=== PATIENT | female | born 1985 ===

== ENCOUNTER 2024-01-13 16:11 | Outpatient (CLI) | payer OTHER, SELFPAY ==
[2024-01-13 16:11] LABS: HCT 36.8 % (36.0-46.0); HGB 12.7 g/dL (11.2-15.7); MCH 30.9 pg (27.0-33.0); MCHC 34.5 % (32.0-36.0); MCV 90 fL (80-95); MPV 8.3 fL (8.0-11.0); Platelet Count 244 10^3/uL (130-400); RBC 4.11 10^6/uL (3.93-5.22); RDW 12.2 % (11.7-14.6); RDW-SD 39.9 fL; WBC 10.58 10^3/uL (4.4-10.8)
== END 2024-01-13 16:12 | disposition home or self-care (01) ==
PROVIDERS: PCP Advanced Practice Midwife; Visit Provider Advanced Practice Midwife
DX: Z34.91 Encounter for supervision of normal pregnancy, unspecified, first trimester (principal); Z3A.13 13 weeks gestation of pregnancy
CPT/HCPCS: 36415; 85027; 86850; 86900; 86901

== ENCOUNTER 2024-04-02 03:08 | Outpatient (CLI) | payer OTHER, SELFPAY ==
[2024-04-02 16:58] LABS: HCT 38.6 % (36.0-46.0); HGB 12.8 g/dL (11.2-15.7); MCH 30.9 pg (27.0-33.0); MCHC 33.2 % (32.0-36.0); MCV 93 fL (80-95); MPV 8.4 fL (8.0-11.0); Platelet Count 311 10^3/uL (130-400); RBC 4.14 10^6/uL (3.93-5.22); RDW 12.3 % (11.7-14.6); RDW-SD 42.4 fL; WBC 10.93 10^3/uL (4.4-10.8)
[2024-04-02 18:13] LABS: Bilirubin Negative (Negative); Blood Trace-intact (Negative); Clarity Clear (Clear); Glucose Negative (Negative); Ketones Negative (Negative); Leukocyte Esterase Negative (Negative); Nitrite Negative (Negative); Specific Gravity 1.015 (1.005-1.025); Urobilinogen 0.2 mg/dL (Up to 0.2)
[2024-04-02 18:17] LABS: Ferritin 25 ng/mL (8-252)
[2024-04-02 18:38] LABS: Bacteria Negative HPF (Negative); C & S Indicated? C&S Done As Ordered; Casts Negative LPF (Negative); Crystals Negative HPF (Negative); Epithelial Cells Rare HPF (Negative); Mucus Negative (Negative); RBC 0-2 HPF (0-2); WBC 0-2 HPF (0-5)
[2024-04-03 08:01] LABS: Lab Add On Test DONE
[2024-04-03 08:35] LABS: TSH (W/Ref FT4) 1.01 uIU/mL (0.36-3.74)
== END 2024-04-02 03:09 | disposition home or self-care (01) ==
LOC: LBO 03:09
PROVIDERS: PCP Advanced Practice Midwife; Visit Provider Advanced Practice Midwife
DX: O26.899 Other specified pregnancy related conditions, unspecified trimester (principal); R35.0 Frequency of micturition; Z34.90 Encounter for supervision of normal pregnancy, unspecified, unspecified trimester; O09.519 Supervision of elderly primigravida, unspecified trimester
CPT/HCPCS: 36415; 82306; 85027; 81003; 81015; 82728; 83036; 84443; 87086

== ENCOUNTER 2024-07-19 21:04 | Inpatient (IN) | payer OTHER, SELFPAY ==
[2024-07-19] VITALS (7 sets, daily range): BP systolic 134–141; BP diastolic 65–79; PULSE 79–88; RESP 16; TEMP 36.6–36.7
[2024-07-19 19:21] LABS: HCT 34.9 % (36.0-46.0); HGB 11.4 g/dL (11.2-15.7); MCH 28.2 pg (27.0-33.0); MCHC 32.7 % (32.0-36.0); MCV 86 fL (80-95); Platelet Count 315 10^3/uL (130-400); RBC 4.04 10^6/uL (3.93-5.22); RDW 13.6 % (11.7-14.6); RDW-SD 42.5 fL; WBC 10.17 10^3/uL (4.4-10.8)
[2024-07-19 19:26] LABS: Bilirubin Negative (Negative); Blood Moderate (Negative); Clarity Clear (Clear); Glucose Negative (Negative); Ketones Negative (Negative); Leukocyte Esterase Small (Negative); Nitrite Negative (Negative); Urobilinogen 0.2 mg/dL (Up to 0.2); pH 6.5 (5-8)
[2024-07-19 19:42] LABS: COMMENT (LAB VIEW ONLY) 72.26 mg/dL; PROTEIN 33.8 mg/dL; Prot/Crea Ur Ratio 0.46
[2024-07-19 19:47] LABS: ALT 13 U/L (14-59); AST 15 U/L (15-37); Albumin 2.4 g/dL (3.4-5.0); Alkaline Phosphatase 153 U/L (46-116); Anion Gap 8.9 mmol/L (3-11); BUN 18 mg/dL (7-18); Bilirubin, Total 0.15 mg/dL (0.2-1.0); CO2 23.1 mmol/L (21.0-32.0); CREATININE 0.9 mg/dL (0.55-1.02); Chloride 108 mmol/L (98-107); Estimated GFR 82.88 (mL/min/1.73m2); Glucose 97 mg/dL (74-106); Potassium 4.7 mmol/L (3.5-5.1); Sodium 140 mmol/L (136-145); Total Protein 6.2 g/dL (6.4-8.2)
[2024-07-19 19:48] LABS: Bacteria Few HPF (Negative); C & S Indicated? No/Sq. Contamination; Casts Negative LPF (Negative); Crystals Negative HPF (Negative); Epithelial Cells Moderate HPF (Negative); Mucus Negative (Negative)
--- NOTE | 2024-07-19 21:08 | HPE_ITS ---
Date of service: 07/19/24 Time of Service: 21:08 Assessment and Plan Assessment and plan (1) Preeclampsia: Status: Acute Assessment and plan: P0 @40wks transferred from care with her home ward attendant for induction of labor due to PEC without severe features. We had a long discussion about her diagnosis and our recommendation with induction of labor. She is agreeable with this plan and requested labor management by our midwives. Christina notified and will plan to assume care in the am. We reviewed my recommendations for a hep lock in case she needs IV medication for BP management. We also discussed my recommendation for induction with misoprostol. She would like to wait until her returns and then plan to take the first dose. She has been feeling a little crampy since her cervical exam. She is aware of the need for monitoring per protocol. She has declined GBS screening and previously declined a glucola test. It sounds as though she may have a large amount of fluid though this has not been confirmed on ultrasound here. (2) History of abnormal cervical Pap smear: Assessment and plan: Will need to f/u with her about her pap smear history and willingness for further screening. (3) PTSD (post-traumatic stress disorder): Status: Acute Assessment and plan: She has had traumatic experiences at hospitals in the past and requests that everyone explain things thoroughly to her before doing anything to her. OB-HPI Labor/Delivery History of Present Illness Reason for Visit: Preeclampsia Chief Complaint: Signs/Symptoms Gestational HTN , Associated Signs and Symptoms of GestationalHTN: Elevated BPs at home ward attendant visit. JARET Calculator Estimated Delivery Date Method Current WG Current Estimate 07/19/24 LMP (Certain) 40w 0d History of Present Expected Delivery Route/Plan , hopes for homebirth FOB/ - Andrew Sanders (has 15 yo daughter) Specific Issues/Plan 1. Sees [place] JANICE (licensed aircraft maintenance engineer), was planning home delivery 2. AMA, age 38 @ [facility]; declines all genetic screening, accepts [facility] consult & level 2 scan 2a. Growth scan recommended by M @ 34 wks ___ 2b. MFM: surveillance @ 36 wks (NST & DEBI weekly) and IOL between 39- 39+6 wks ___ 3. FOB has cardiac hx including VSD and arrhythmia ([facility] consult accepted) 3a. Level 2 u/s is nml, pt declined all genetic screens & amnio. MFM consult recommends echo ___ 4. Low dose ASA is recommended d/t AMA & nulliparity, pt declines 5. 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 Pt with traumatic experience at [facility] with prior abnl pap management 6. 28 wk labs drawn at pt request, glucola is declined, HgbA1C is 5.0 7. Pt declined GBS testing Narrative: Pt was planning a home but at a routine visit today she was found to have mildly elevated BPs and her ward attendant recommended that she comes here for labs to r/o PEC. She says she has had some back pain but no real contractions, no bleeding. She is feeling good movement. She says she has had some swelling for several weeks but it is getting worse. She had a headache last night but it resolved in the am. She has had some diarrhea the past day or so. No LOF or unusual discharge. Review of Systems Genitourinary Genitourinary: Reports system reviewed and no additional complaints, except as documented PFSH All Active Problems (Updated 07/19/24 @ 21:49 by Sary Gomez MD) Preeclampsia (Acute) Family history of cardiac disorder in father (Acute) Pt's partner/FOB has arrhythmia and VSD Elderly primigravida (Acute) Migraines (Chronic) Anxiety (Chronic) PTSD (post-traumatic stress disorder) (Acute) (Acute) Medical History (Updated 07/19/24 @ 21:49 by Sary Gomez MD) History of abnormal cervical Pap smear Pelvic floor dysfunction Increased urinary frequency during Social History (Updated 01/13/24 @ 15:19 by Wendy Sparks) Smoking/Tobacco Use Status: Never Second Hand Exposure: No Smoking risk assessment performed?: Yes Alcohol Intake: never Drug use: Never Substance use type: does not use Household members: spouse and family current occupation: [place] Sexually active: Yes Current gender identity: female What is your relationship status?: Panel score (0-1 are the most socially isolated patients): 1 What type of physical activity do you participate in: regular exercise Duration: 30-45 minutes/day Seatbelt use: always Helmet use: Yes Do you feel safe at home: Yes History History 1 Para 0 Hx # Term Pregnancies 0 Multiple births 0 Hx # Pregnancies 0 Ectopic pregnancies 0 AB induced 0 Hx Number of Living Children 0 AB spontaneous 0 Meds Allergies and Home Medications Allergies Allergy/AdvReac Type Severity Reaction Status Date / Time hydroxyzine Allergy Mild Dizziness/L Verified 01/13/24 15:10 ighthead Home Medications ?Medication ?Instructions ?Recorded ?Confirmed ?Type Unknown [No Known Home Meds] 01/13/24 07/19/24 History Exam Physical Exam Vital signs: Temp Pulse BP 97.9 F 88 139/76 07/19/24 19:18 07/19/24 19:48 07/19/24 19:48 Vital Signs Reviewed: Yes Detailed Labor and Delivery Exam Dilation: 1 Effacement (%): 70 station: -2 Cervix position: mid Consistency: soft Leon Score: Cervical Points Exam 0 1 2 3 Dilation Closed 1-2cm 3-4 cm 5-6cm Effacement 0-30% 40-50% 60-70% 80% Consistency Firm Medium Soft Station -3 -2 -1,0 +1,+2 Position Posterior Mid Anterior Amniotic Membrane Status: Intact Fetus A Heart Rate Baseline: 1 Detailed HEENT Exam Head: Present normocephalic and atraumatic Detailed Abdominal Exam Comments: gravid, nontender EFW ~8.5lbs Detailed Neurological Exam Neurological: Present alert, oriented X3 and CN II-XII intact DetailedPsychiatric Exam Psychiatric: Present normal affect, normal thought process and cooperative Additional findings Additional findings: Per pt, her ward attendant did a sono 2 days ago that showed vertex presentation with lots of pockets of fluid. Results Results Group Beta Strep: Not Done Blood Type: O+ Rubella Status: Immune Varicella Immunity: Not Tested Abnormal Lab Findings: Abnormal Labs 07/19/24 07/19/24 19:04 19:13 Hct 34.9 L Chloride 108 H Total Bilirubin 0.15 L ALT 13 L Alkaline Phosphatase 153 H Total Protein 6.2 L Albumin 2.4 L Urine Protein 30 H Urine Blood Moderate H Ur Leukocyte Esterase Small H Urine RBC 5-10 H Urine WBC 10-20 H Additional Findings Results: Urine protein creatinine ratio: 0.46 Risk Assessment Risks Reviewed Risks Reviewed Upon Admission: Yes
--- NOTE | 2024-07-19 21:52 | W.OBNST ---
Date of service: 07/19/24 Time of Service: 19:30 NST Evaluation Reason for NST Reasons for Nonstress Test: OTHER, SEE COMMENT Reason for NST Other: Rule out preeclampsia Gestational Age Gestational Age in Weeks and Days: 40 Weeks and 0Days Test and Monitor Explained Test/Monitor Explained: Test Explained, Monitor Explained and Patient Verbalized Understanding Vital Signs Blood Pressure: 136/79 Pulse: 81 Temperature: 97.9 F Urine Results Urine Protein: Positive Urine Ketones: Negative Urine Glucose: Negative Urine Blood: Positive NST Information Date on Monitor: 07/19/24 Time on Monitor: 19:16 Date off Monitor: 07/19/24 Time off Monitor: 19:38 Total Time on Monitor: 22 NST Interventions: PO Hydration Contraction Frequency: Praveen occasionally. Patient states she is not feeling them. NST Evaluation Patient States Movement: Present FHR Baseline: 135 Variability: Moderate 6-25 bpm Accelerations: 15x15 Decelerations: None NST Results: Reactive Note Ultrasound Done: N/A. NST Note NST Reviewed and Verified by: Sary Gomez
[2024-07-19 22:58] LABS: ROM Plus Positive
[2024-07-20] VITALS (117 sets, daily range): BP systolic 114–152; BP diastolic 56–88; PULSE 73–155; RESP 16–18; TEMP 36.3–37.7; O2SAT 89–100; BMI 38.2
--- NOTE | 2024-07-20 01:12 | W.PM.OBNL1 ---
Date of service: 07/20/24 Time of Service: 01:12 Pelvic Exam Dilation: 5 Effacement (%): 90 station: -1 Contractions Contraction Frequency(min): q2-3min Fetus A Monitor: Doppler (130s) Assessment and Plan Assessment and plan (1) Preeclampsia: Status: Acute Assessment and plan: P0 @40.1wks with PEC who progressed into spontaneous labor with SROM. She is coping with the support of her and dining services director. She was offered alternative pain management such as nitrous oxide but she plans to try to sit in the shower first. Objective Abnormal lab results 07/19/24 07/19/24 Range/Units 19:04 19:13 Hct 34.9 L (36.0-46.0) % Chloride 108 H (98-107) mmol/L Total Bilirubin 0.15 L (0.2-1.0) mg/dL ALT 13 L (14-59) U/L Alkaline Phosphatase 153 H (46-116) U/L Total Protein 6.2 L (6.4-8.2) g/dL Albumin 2.4 L (3.4-5.0) g/dL Urine Protein 30 H (Neg-Trace) mg/dL Urine Blood Moderate H (Negative) Ur Leukocyte Esterase Small H (Negative) Urine RBC 5-10 H (0-2) HPF Urine WBC 10-20 H (0-5) HPF Temp Pulse Resp BP 98.1 F 81 18 151/87 H 07/19/24 22:04 07/20/24 00:39 07/20/24 00:39 07/20/24 00:39 Laboratory Results WBC 10.17 10^3/uL (4.4-10.8) 07/19/24 19:13 RBC 4.04 10^6/uL (3.93-5.22) 07/19/24 19:13 Hgb 11.4 g/dL (11.2-15.7) 07/19/24 19:13 Hct 34.9 % (36.0-46.0) L 07/19/24 19:13 MCV 86 fL (80-95) 07/19/24 19:13 MCH 28.2 pg (27.0-33.0) 07/19/24 19:13 MCHC 32.7 % (32.0-36.0) 07/19/24 19:13 RDW 13.6 % (11.7-14.6) 07/19/24 19:13 Plt Count 315 10^3/uL (130-400) 07/19/24 19:13 MPV 9.0 fL (8.0-11.0) 07/19/24 19:13 Sodium 140 mmol/L (136-145) 07/19/24 19:13 Potassium 4.7 mmol/L (3.5-5.1) 07/19/24 19:13 Chloride 108 mmol/L (98-107) H 07/19/24 19:13 Carbon Dioxide 23.1 mmol/L (21.0-32.0) 07/19/24 19:13 Anion Gap 8.9 mmol/L (3-11) 07/19/24 19:13 BUN 18 mg/dL (7-18) 07/19/24 19:13 Creatinine 0.9 mg/dL (0.55-1.02) 07/19/24 19:13 Est GFR (CKD-EPI 2020) 82.88 (mL/min/1.73m2) 07/19/24 19:13 Glucose 97 mg/dL (74-106) 07/19/24 19:13 Calcium 9.0 mg/dL (8.5-10.1) 07/19/24 19:13 Total Bilirubin 0.15 mg/dL (0.2-1.0) L 07/19/24 19:13 AST 15 U/L (15-37) 07/19/24 19:13 ALT 13 U/L (14-59) L 07/19/24 19:13 Alkaline Phosphatase 153 U/L (46-116) H 07/19/24 19:13 Total Protein 6.2 g/dL (6.4-8.2) L 07/19/24 19:13 Albumin 2.4 g/dL (3.4-5.0) L 07/19/24 19:13 Urine Color Yellow (Yellow) 07/19/24 19:04 Urine Clarity Clear (Clear) 07/19/24 19:04 Urine pH 6.5 (5-8) 07/19/24 19:04 Ur Specific [place] 1.020 (1.005-1.025) 07/19/24 19:04 Urine Protein 30 mg/dL (Neg-Trace) H 07/19/24 19:04 Urine Ketones Negative mg/dL (Negative) 07/19/24 19:04 Urine Blood Moderate (Negative) H 07/19/24 19:04 Urine Nitrite Negative (Negative) 07/19/24 19:04 Urine Bilirubin Negative (Negative) 07/19/24 19:04 Urine Urobilinogen 0.2 mg/dL (Up to 0.2) 07/19/24 19:04 Ur Leukocyte Esterase Small (Negative) H 07/19/24 19:04 Urine RBC 5-10 HPF (0-2) H 07/19/24 19:04 Urine WBC 10-20 HPF (0-5) H 07/19/24 19:04 Ur Epithelial Cells Moderate HPF (Negative) 07/19/24 19:04 Urine Crystals Negative HPF (Negative) 07/19/24 19:04 Urine Bacteria Few HPF (Negative) 07/19/24 19:04 Urine Casts Negative LPF (Negative) 07/19/24 19:04 Urine Mucus Negative (Negative) 07/19/24 19:04 Ur Culture Indicated? No/Sq. Contamination 07/19/24 19:04 Ur Random Creatinine 72.26 mg/dL 07/19/24 19:04 U Random Total Protein 33.8 mg/dL 07/19/24 19:04 U [place] Prot/Creat Ratio 0.46 07/19/24 19:04 Urine Glucose Negative mg/dL (Negative) 07/19/24 19:04 Membranes Rupture Positive 07/19/24 22:42 ABO/Rh O Positive 07/19/24 19:13 Antibody Screen NEGATIVE 07/19/24 19:13 Vital Signs Reviewed: Yes Subjective Interval history since last seen: Pt progressed into active labor without getting misoprostol. She experienced SROM around 10:40pm and continued leaking a small amount of clear fluid. She is jessica regularly every few minutes, spent some time in the tub and has been moving around but is getting tired and discouraged and desired a cervical check. Results Hemoglobin/Hematocrit: Hgb 11.4 g/dL (11.2-15.7) 07/19/24 19:13 Hct 34.9 % (36.0-46.0) L 07/19/24 19:13 Abnormal Lab Findings: Abnormal Labs 07/19/24 07/19/24 19:04 19:13 Hct 34.9 L Chloride 108 H Total Bilirubin 0.15 L ALT 13 L Alkaline Phosphatase 153 H Total Protein 6.2 L Albumin 2.4 L Urine Protein 30 H Urine Blood Moderate H Ur Leukocyte Esterase Small H Urine RBC 5-10 H Urine WBC 10-20 H
--- NOTE | 2024-07-20 02:42 | W.PM.OBNL1 ---
Date of service: 07/20/24 Time of Service: 02:42 Pelvic Exam Dilation: 8 Effacement (%): 90 station: -1 Fetus A Monitor: Doppler (120) Assessment and Plan Assessment and plan (1) Preeclampsia: Status: Acute Assessment and plan: P0 @40.1wks planning induction for PEC but went into spontaneous labor and has progressed to 8cm. Desires an epidural. status reassuring. Objective Abnormal lab results 07/19/24 07/19/24 Range/Units 19:04 19:13 Hct 34.9 L (36.0-46.0) % Chloride 108 H (98-107) mmol/L Total Bilirubin 0.15 L (0.2-1.0) mg/dL ALT 13 L (14-59) U/L Alkaline Phosphatase 153 H (46-116) U/L Total Protein 6.2 L (6.4-8.2) g/dL Albumin 2.4 L (3.4-5.0) g/dL Urine Protein 30 H (Neg-Trace) mg/dL Urine Blood Moderate H (Negative) Ur Leukocyte Esterase Small H (Negative) Urine RBC 5-10 H (0-2) HPF Urine WBC 10-20 H (0-5) HPF Temp Pulse Resp BP 97.4 F L 73 18 137/71 07/20/24 01:15 07/20/24 01:15 07/20/24 00:39 07/20/24 01:15 Laboratory Results WBC 10.17 10^3/uL (4.4-10.8) 07/19/24 19:13 RBC 4.04 10^6/uL (3.93-5.22) 07/19/24 19:13 Hgb 11.4 g/dL (11.2-15.7) 07/19/24 19:13 Hct 34.9 % (36.0-46.0) L 07/19/24 19:13 MCV 86 fL (80-95) 07/19/24 19:13 MCH 28.2 pg (27.0-33.0) 07/19/24 19:13 MCHC 32.7 % (32.0-36.0) 07/19/24 19:13 RDW 13.6 % (11.7-14.6) 07/19/24 19:13 Plt Count 315 10^3/uL (130-400) 07/19/24 19:13 MPV 9.0 fL (8.0-11.0) 07/19/24 19:13 Sodium 140 mmol/L (136-145) 07/19/24 19:13 Potassium 4.7 mmol/L (3.5-5.1) 07/19/24 19:13 Chloride 108 mmol/L (98-107) H 07/19/24 19:13 Carbon Dioxide 23.1 mmol/L (21.0-32.0) 07/19/24 19:13 Anion Gap 8.9 mmol/L (3-11) 07/19/24 19:13 BUN 18 mg/dL (7-18) 07/19/24 19:13 Creatinine 0.9 mg/dL (0.55-1.02) 07/19/24 19:13 Est GFR (CKD-EPI 2020) 82.88 (mL/min/1.73m2) 07/19/24 19:13 Glucose 97 mg/dL (74-106) 07/19/24 19:13 Calcium 9.0 mg/dL (8.5-10.1) 07/19/24 19:13 Total Bilirubin 0.15 mg/dL (0.2-1.0) L 07/19/24 19:13 AST 15 U/L (15-37) 07/19/24 19:13 ALT 13 U/L (14-59) L 07/19/24 19:13 Alkaline Phosphatase 153 U/L (46-116) H 07/19/24 19:13 Total Protein 6.2 g/dL (6.4-8.2) L 07/19/24 19:13 Albumin 2.4 g/dL (3.4-5.0) L 07/19/24 19:13 Urine Color Yellow (Yellow) 07/19/24 19:04 Urine Clarity Clear (Clear) 07/19/24 19:04 Urine pH 6.5 (5-8) 07/19/24 19:04 Ur Specific [place] 1.020 (1.005-1.025) 07/19/24 19:04 Urine Protein 30 mg/dL (Neg-Trace) H 07/19/24 19:04 Urine Ketones Negative mg/dL (Negative) 07/19/24 19:04 Urine Blood Moderate (Negative) H 07/19/24 19:04 Urine Nitrite Negative (Negative) 07/19/24 19:04 Urine Bilirubin Negative (Negative) 07/19/24 19:04 Urine Urobilinogen 0.2 mg/dL (Up to 0.2) 07/19/24 19:04 Ur Leukocyte Esterase Small (Negative) H 07/19/24 19:04 Urine RBC 5-10 HPF (0-2) H 07/19/24 19:04 Urine WBC 10-20 HPF (0-5) H 07/19/24 19:04 Ur Epithelial Cells Moderate HPF (Negative) 07/19/24 19:04 Urine Crystals Negative HPF (Negative) 07/19/24 19:04 Urine Bacteria Few HPF (Negative) 07/19/24 19:04 Urine Casts Negative LPF (Negative) 07/19/24 19:04 Urine Mucus Negative (Negative) 07/19/24 19:04 Ur Culture Indicated? No/Sq. Contamination 07/19/24 19:04 Ur Random Creatinine 72.26 mg/dL 07/19/24 19:04 U Random Total Protein 33.8 mg/dL 07/19/24 19:04 U [place] Prot/Creat Ratio 0.46 07/19/24 19:04 Urine Glucose Negative mg/dL (Negative) 07/19/24 19:04 Membranes Rupture Positive 07/19/24 22:42 ABO/Rh O Positive 07/19/24 19:13 Antibody Screen NEGATIVE 07/19/24 19:13 Subjective Interval history since last seen: Pt has tried nitrous oxide and would like to have an epidural now. Results Hemoglobin/Hematocrit: Hgb 11.4 g/dL (11.2-15.7) 07/19/24 19:13 Hct 34.9 % (36.0-46.0) L 07/19/24 19:13 Abnormal Lab Findings: Abnormal Labs 07/19/24 07/19/24 19:04 19:13 Hct 34.9 L Chloride 108 H Total Bilirubin 0.15 L ALT 13 L Alkaline Phosphatase 153 H Total Protein 6.2 L Albumin 2.4 L Urine Protein 30 H Urine Blood Moderate H Ur Leukocyte Esterase Small H Urine RBC 5-10 H Urine WBC 10-20 H
--- NOTE | 2024-07-20 02:49 | ANES.PREOP_ITS ---
General Info Date of Service Date Performed: 07/20/24 Height: 5 ft 5 in Weight: 104.326 kg Body Mass Index (BMI): 38.2 Meds Allergies and Home Medications Allergies Allergy/AdvReac Type Severity Reaction Status Date / Time hydroxyzine Allergy Mild Dizziness/L Verified 01/13/24 15:10 ighthead Home Medication ?Medication ?Instructions ?Recorded Unknown [No Known Home Meds] 01/13/24 Current Visit Medications: Current Medications Generic Name Dose Route Start Last Admin Trade Name Freq PRN Reason Stop Dose Admin Fentanyl/Ropivacaine 200 ml 07/20/24 02:30 Fentanyl/Ropivacaine 2 Mcg/Ml And 0.1% 200 Ml [place]ette EP DIRECTED [facility] IV Miscellaneous Supplies 1 each 07/19/24 21:15 Iv Access IV DIRECTED LUIS Misoprostol 25 mcg 07/19/24 22:00 Misoprostol 25 Mcg Tab PO Q4H LUIS Sodium Chloride 0 ml 07/19/24 21:03 Normal Saline Flush 10 Ml Syr IVP PRN PRN Sodium Chloride 0 ml 07/20/24 08:30 Normal Saline Flush 10 Ml Syr IVP BID LUIS Sodium Chloride 0 ml 07/19/24 21:03 Normal Saline 10 Ml Vial IJ DIRECTED PRN Terbutaline Sulfate 0.25 mg 07/19/24 21:03 Terbutaline 1 Mg/Ml Vial SC PRN PRN PFSH Active Problems Active Problems: Problem Status Onset Code Preeclampsia Acute O14.90 Family history of cardiac disorder in father Acute Z82.49 Elderly primigravida Acute O09.519 Migraines Chronic G43.909 PTSD (post-traumatic stress disorder) Acute F43.10 Anxiety Chronic F41.9 Acute Z34.90 Medical History Medical History (Updated 07/19/24 @ 21:49 by Sary Gomez MD) History of abnormal cervical Pap smear Pelvic floor dysfunction Increased urinary frequency during Tobacco Smoking/Tobacco Use Status: Never Second hand exposure: No Alcohol Alcohol Intake: never Substance Use Substance use: Never Substance use type: does not use Prental History History 2 1 Para 0 Hx # Term Pregnancies 0 Multiple births 0 Hx # Pregnancies 0 Ectopic pregnancies 0 AB induced 0 Hx Number of Living Children 0 AB spontaneous 0 Vital Signs and Lab Results Vital Signs Most Recent Vital Signs in EMR: Most Recent Vital Signs Temp Pulse Resp BP 36.3 C L 73 18 137/71 07/20/24 01:15 07/20/24 01:15 07/20/24 00:39 07/20/24 01:15 Lab Results 07/19/24 19:13 07/19/24 19:13 Blood Type / Crossmatch: 2 Antibody Screen NEGATIVE 07/19/24 Complete Blood Count: 2 White Blood Count 10.17 10^3/uL (4.4-10.8) 07/19/24 19:13 Red Blood Count 4.04 10^6/uL (3.93-5.22) 07/19/24 19:13 Hemoglobin 11.4 g/dL (11.2-15.7) 07/19/24 19:13 Hematocrit 34.9 % (36.0-46.0) L 07/19/24 19:13 Platelet Count 315 10^3/uL (130-400) 07/19/24 19:13 Complete Metabolic Panel: 2 Sodium 140 mmol/L (136-145) 07/19/24 19:13 Potassium 4.7 mmol/L (3.5-5.1) 07/19/24 19:13 Chloride 108 mmol/L (98-107) H 07/19/24 19:13 Carbon Dioxide 23.1 mmol/L (21.0-32.0) 07/19/24 19:13 BUN 18 mg/dL (7-18) 07/19/24 19:13 Creatinine 0.9 mg/dL (0.55-1.02) 07/19/24 19:13 Est GFR (CKD-EPI 2020) 82.88 (mL/min/1.73m2) 07/19/24 19:13 Calcium 9.0 mg/dL (8.5-10.1) 07/19/24 19:13 Albumin 2.4 g/dL (3.4-5.0) L 07/19/24 19:13 Glucose 97 mg/dL (74-106) 07/19/24 19:13 Liver Function Panel: 2 Alanine Aminotransferase (ALT/SGPT) 13 U/L (14-59) L 07/19/24 1 9:13 Aspartate Amino Transf (AST/SGOT) 15 U/L (15-37) 07/19/24 19:13 Coagulation Panel: 2 No Data to Display Cardiac Panel: 2 No Data to Display Arterial Blood Gas: 2 No Data to Display Venous Blood Gas: 2 No Data to Display Pancreas Panel: 2 No Data to Display Thyroid Panel: 2 No Data to Display Infectious Disease: 2 No Data to Display Blood Cultures: 2 No Data to Display Toxicology Panel: 2 No Data to Display Panel: 2 No Data to Display Anesthesia Assessment and Plan Anesthesia History Personal History: No History of Anesthesia Complications Family History: No Family History of Anesthesia Complications Exercise Tolerance Exercise Tolerance: Metabolic Equivalents>4 Cardiac & Pulmonary Exam Cardiac Exam: Normal S1/S2 Heart Sounds Pulmonary Exam: Clear Bilateral Breath Sounds Implantable Cardiac Device Does patient have a Pacemaker or an ICD?: No Airway Exam Known Difficult Airway: No Mallampati Class: 3 Mouth Opening: Normal (> 3cm) Thyromental Distance: Less than 3 cm Neck Range of Motion: Full ROM Neck Circumference: Normal Teeth Condition: Normal Dentition ASA Classification ASA Score: ASA 2 Emergency Case?: No NPO Status NPO Status: Full Stomach Status Status: Confirmed Anesthesia Plan Resuscitation Status: Full Code Anesthesia Technique: Epidural Anesthesia Airway Planned: Natural Airway Pain Management: Epidural Monitors Used: Standard Monitors Preoperative Comments:: 38 yo female requesting labor epidural. 40 wks, was going to do home delivery, preeclamptic, came in for induction with then spontaneous onset of labor. Currently 8 cm, 90 %. Sig PMHx: PTSD, anxiety, migraines, never smoker. Plt: 315 Denies Asthma.
[2024-07-20] MEDS: FentaNYL/ROPIvacaine 2 mcg/ml and 0.1% 200 ML CADD Cassette EP (03:20)
--- NOTE | 2024-07-20 03:37 | W.ANESNEU ---
Epidural/Spinal Catheter Date Performed: 07/20/24 Procedure Start: : Procedure Stop: : Requesting Provider: Sary Gomez Procedure Location: Obstetrics Reason Performed: Labor Epidural Standard Monitors Applied: Blood Pressure and SpO2 Patient Position: Sitting Sedation Given (Indicate Dose Given): No Sedation given Patient Mental Status: Awake Sterility: Hand Hygiene, Surgical Cap, Surgical Mask, Sterile Gloves, Sterile Drape/Sheet and Chlorhexidine Procedure Location: L3-L4 Interspace Epidural Needle: Tuohy 17 Guage Needle Length: 3.5 Inch Needle Approach: Midline Epidural Procedure: 1% Lidocaine to skin and subcutaneous tissue with 25G needle and Epidural Catheter Placed (wire reinforced) Catheter Placed?: Catheter Placed Test Dose (Indicate Dose Given): 3ml 1.5% Lidocaine with 1:200K Epinephrine Given Loss of Resistance Depth (cm): 7 Catheter depth at skin (cm): 13 Dressing: Sorbaview Dressing Placed Epidural Provider Bolus (Indicate Dose Given): Total Ropivacaine 0.1% with Fentanyl 2mcg/ml Given from pump. (ml) Dose:: 7 mL Additives (Indicate Dose Given ): None Infusion Medication: Medication Infusion Began Medication Infusion: Ropivacaine 0.1% with Fentanyl 2mcg/ml Maintenance Infusion Rate (ml/hour): 10 PCEA Bolus Dose (ml): 5 Block Level: N/A Paresthesia: None Ultrasound: Used to sven site Number of Attempts (See previous attempts in note section): 1 Procedure Tolerated: No Complications and Patient tolerated well Procedure Outcome: Successful Performed By: David Reyes
--- NOTE | 2024-07-20 06:10 | W.PM.OBNL1 ---
Date of service: 07/20/24 Time of Service: 06:11 Pelvic Exam Comments: There was a reducible anterior lip as pt started pushing. Fetus A Heart Rate Baseline: 140 Variability: Moderate (6-25 BPM) Accelerations: 15 X 15 Decelerations: None Assessment and Plan Assessment and plan (1) Preeclampsia: Status: Acute (2) : Status: Acute Assessment and plan: P0 @40.1wks with PEC, spontaneous labor, received epidural, now pushing. Cat 1 FHT. Bps mildly elevated to normal. Objective Abnormal lab results 07/19/24 07/19/24 Range/Units 19:04 19:13 Hct 34.9 L (36.0-46.0) % Chloride 108 H (98-107) mmol/L Total Bilirubin 0.15 L (0.2-1.0) mg/dL ALT 13 L (14-59) U/L Alkaline Phosphatase 153 H (46-116) U/L Total Protein 6.2 L (6.4-8.2) g/dL Albumin 2.4 L (3.4-5.0) g/dL Urine Protein 30 H (Neg-Trace) mg/dL Urine Blood Moderate H (Negative) Ur Leukocyte Esterase Small H (Negative) Urine RBC 5-10 H (0-2) HPF Urine WBC 10-20 H (0-5) HPF Temp Pulse Resp BP Pulse Ox 97.9 F 112 H 18 135/62 98 07/20/24 04:48 07/20/24 05:24 07/20/24 03:42 07/20/24 05:18 07/20/24 05:24 Laboratory Results WBC 10.17 10^3/uL (4.4-10.8) 07/19/24 19:13 RBC 4.04 10^6/uL (3.93-5.22) 07/19/24 19:13 Hgb 11.4 g/dL (11.2-15.7) 07/19/24 19:13 Hct 34.9 % (36.0-46.0) L 07/19/24 19:13 MCV 86 fL (80-95) 07/19/24 19:13 MCH 28.2 pg (27.0-33.0) 07/19/24 19:13 MCHC 32.7 % (32.0-36.0) 07/19/24 19:13 RDW 13.6 % (11.7-14.6) 07/19/24 19:13 Plt Count 315 10^3/uL (130-400) 07/19/24 19:13 MPV 9.0 fL (8.0-11.0) 07/19/24 19:13 Sodium 140 mmol/L (136-145) 07/19/24 19:13 Potassium 4.7 mmol/L (3.5-5.1) 07/19/24 19:13 Chloride 108 mmol/L (98-107) H 07/19/24 19:13 Carbon Dioxide 23.1 mmol/L (21.0-32.0) 07/19/24 19:13 Anion Gap 8.9 mmol/L (3-11) 07/19/24 19:13 BUN 18 mg/dL (7-18) 07/19/24 19:13 Creatinine 0.9 mg/dL (0.55-1.02) 07/19/24 19:13 Est GFR (CKD-EPI 2020) 82.88 (mL/min/1.73m2) 07/19/24 19:13 Glucose 97 mg/dL (74-106) 07/19/24 19:13 Calcium 9.0 mg/dL (8.5-10.1) 07/19/24 19:13 Total Bilirubin 0.15 mg/dL (0.2-1.0) L 07/19/24 19:13 AST 15 U/L (15-37) 07/19/24 19:13 ALT 13 U/L (14-59) L 07/19/24 19:13 Alkaline Phosphatase 153 U/L (46-116) H 07/19/24 19:13 Total Protein 6.2 g/dL (6.4-8.2) L 07/19/24 19:13 Albumin 2.4 g/dL (3.4-5.0) L 07/19/24 19:13 Urine Color Yellow (Yellow) 07/19/24 19:04 Urine Clarity Clear (Clear) 07/19/24 19:04 Urine pH 6.5 (5-8) 07/19/24 19:04 Ur Specific [place] 1.020 (1.005-1.025) 07/19/24 19:04 Urine Protein 30 mg/dL (Neg-Trace) H 07/19/24 19:04 Urine Ketones Negative mg/dL (Negative) 07/19/24 19:04 Urine Blood Moderate (Negative) H 07/19/24 19:04 Urine Nitrite Negative (Negative) 07/19/24 19:04 Urine Bilirubin Negative (Negative) 07/19/24 19:04 Urine Urobilinogen 0.2 mg/dL (Up to 0.2) 07/19/24 19:04 Ur Leukocyte Esterase Small (Negative) H 07/19/24 19:04 Urine RBC 5-10 HPF (0-2) H 07/19/24 19:04 Urine WBC 10-20 HPF (0-5) H 07/19/24 19:04 Ur Epithelial Cells Moderate HPF (Negative) 07/19/24 19:04 Urine Crystals Negative HPF (Negative) 07/19/24 19:04 Urine Bacteria Few HPF (Negative) 07/19/24 19:04 Urine Casts Negative LPF (Negative) 07/19/24 19:04 Urine Mucus Negative (Negative) 07/19/24 19:04 Ur Culture Indicated? No/Sq. Contamination 07/19/24 19:04 Ur Random Creatinine 72.26 mg/dL 07/19/24 19:04 U Random Total Protein 33.8 mg/dL 07/19/24 19:04 U [place] Prot/Creat Ratio 0.46 07/19/24 19:04 Urine Glucose Negative mg/dL (Negative) 07/19/24 19:04 Membranes Rupture Positive 07/19/24 22:42 ABO/Rh O Positive 07/19/24 19:13 Antibody Screen NEGATIVE 07/19/24 19:13 Subjective Interval history since last seen: Pt received an epidural and got some rest. She was feeling more pressure with contractions and interested in pushing. Results Hemoglobin/Hematocrit: Hgb 11.4 g/dL (11.2-15.7) 07/19/24 19:13 Hct 34.9 % (36.0-46.0) L 07/19/24 19:13 Abnormal Lab Findings: Abnormal Labs 07/19/24 07/19/24 19:04 19:13 Hct 34.9 L Chloride 108 H Total Bilirubin 0.15 L ALT 13 L Alkaline Phosphatase 153 H Total Protein 6.2 L Albumin 2.4 L Urine Protein 30 H Urine Blood Moderate H Ur Leukocyte Esterase Small H Urine RBC 5-10 H Urine WBC 10-20 H
--- NOTE | 2024-07-20 10:50 | PGE_ITS ---
Date of service: 07/20/24 Time of Service: 10:00 Pelvic Exam Comments: Persistent anterior lip. Still 0 station, no further descent of head, increase caput. Fetus A Heart Rate Baseline: 130 Variability: Moderate (6-25 BPM) Categories: Category I Accelerations: 15 X 15 Decelerations: None Assessment and Plan Assessment and plan (1) Preeclampsia: Status: Acute Assessment and plan: P0 @40.1wks, PEC, laboring with epidural. Station unchanged and reducible cervical anterior lip still present. Pt would like to work on more position changes in hopes that will help move the baby further. Objective Abnormal lab results 07/19/24 07/19/24 Range/Units 19:04 19:13 Hct 34.9 L (36.0-46.0) % Chloride 108 H (98-107) mmol/L Total Bilirubin 0.15 L (0.2-1.0) mg/dL ALT 13 L (14-59) U/L Alkaline Phosphatase 153 H (46-116) U/L Total Protein 6.2 L (6.4-8.2) g/dL Albumin 2.4 L (3.4-5.0) g/dL Urine Protein 30 H (Neg-Trace) mg/dL Urine Blood Moderate H (Negative) Ur Leukocyte Esterase Small H (Negative) Urine RBC 5-10 H (0-2) HPF Urine WBC 10-20 H (0-5) HPF Temp Pulse Resp BP Pulse Ox 98.1 F 89 16 138/64 89 L 07/20/24 09:59 07/20/24 10:28 07/20/24 08:00 07/20/24 09:59 07/20/24 10:27 Laboratory Results WBC 10.17 10^3/uL (4.4-10.8) 07/19/24 19:13 RBC 4.04 10^6/uL (3.93-5.22) 07/19/24 19:13 Hgb 11.4 g/dL (11.2-15.7) 07/19/24 19:13 Hct 34.9 % (36.0-46.0) L 07/19/24 19:13 MCV 86 fL (80-95) 07/19/24 19:13 MCH 28.2 pg (27.0-33.0) 07/19/24 19:13 MCHC 32.7 % (32.0-36.0) 07/19/24 19:13 RDW 13.6 % (11.7-14.6) 07/19/24 19:13 Plt Count 315 10^3/uL (130-400) 07/19/24 19:13 MPV 9.0 fL (8.0-11.0) 07/19/24 19:13 Sodium 140 mmol/L (136-145) 07/19/24 19:13 Potassium 4.7 mmol/L (3.5-5.1) 07/19/24 19:13 Chloride 108 mmol/L (98-107) H 07/19/24 19:13 Carbon Dioxide 23.1 mmol/L (21.0-32.0) 07/19/24 19:13 Anion Gap 8.9 mmol/L (3-11) 07/19/24 19:13 BUN 18 mg/dL (7-18) 07/19/24 19:13 Creatinine 0.9 mg/dL (0.55-1.02) 07/19/24 19:13 Est GFR (CKD-EPI 2020) 82.88 (mL/min/1.73m2) 07/19/24 19:13 Glucose 97 mg/dL (74-106) 07/19/24 19:13 Calcium 9.0 mg/dL (8.5-10.1) 07/19/24 19:13 Total Bilirubin 0.15 mg/dL (0.2-1.0) L 07/19/24 19:13 AST 15 U/L (15-37) 07/19/24 19:13 ALT 13 U/L (14-59) L 07/19/24 19:13 Alkaline Phosphatase 153 U/L (46-116) H 07/19/24 19:13 Total Protein 6.2 g/dL (6.4-8.2) L 07/19/24 19:13 Albumin 2.4 g/dL (3.4-5.0) L 07/19/24 19:13 Urine Color Yellow (Yellow) 07/19/24 19:04 Urine Clarity Clear (Clear) 07/19/24 19:04 Urine pH 6.5 (5-8) 07/19/24 19:04 Ur Specific [place] 1.020 (1.005-1.025) 07/19/24 19:04 Urine Protein 30 mg/dL (Neg-Trace) H 07/19/24 19:04 Urine Ketones Negative mg/dL (Negative) 07/19/24 19:04 Urine Blood Moderate (Negative) H 07/19/24 19:04 Urine Nitrite Negative (Negative) 07/19/24 19:04 Urine Bilirubin Negative (Negative) 07/19/24 19:04 Urine Urobilinogen 0.2 mg/dL (Up to 0.2) 07/19/24 19:04 Ur Leukocyte Esterase Small (Negative) H 07/19/24 19:04 Urine RBC 5-10 HPF (0-2) H 07/19/24 19:04 Urine WBC 10-20 HPF (0-5) H 07/19/24 19:04 Ur Epithelial Cells Moderate HPF (Negative) 07/19/24 19:04 Urine Crystals Negative HPF (Negative) 07/19/24 19:04 Urine Bacteria Few HPF (Negative) 07/19/24 19:04 Urine Casts Negative LPF (Negative) 07/19/24 19:04 Urine Mucus Negative (Negative) 07/19/24 19:04 Ur Culture Indicated? No/Sq. Contamination 07/19/24 19:04 Ur Random Creatinine 72.26 mg/dL 07/19/24 19:04 U Random Total Protein 33.8 mg/dL 07/19/24 19:04 U [place] Prot/Creat Ratio 0.46 07/19/24 19:04 Urine Glucose Negative mg/dL (Negative) 07/19/24 19:04 Membranes Rupture Positive 07/19/24 22:42 ABO/Rh O Positive 07/19/24 19:13 Antibody Screen NEGATIVE 07/19/24 19:13 Vital Signs Reviewed: Yes Subjective Interval history since last seen: Pt pushed for about an hour and the anterior lip of the cervix reduced with each push but then returned in between pushed. She then took a nap for a few hours. She is still comfortable with her epidural. Results Hemoglobin/Hematocrit: Hgb 11.4 g/dL (11.2-15.7) 07/19/24 19:13 Hct 34.9 % (36.0-46.0) L 07/19/24 19:13 Abnormal Lab Findings: Abnormal Labs 07/19/24 07/19/24 19:04 19:13 Hct 34.9 L Chloride 108 H Total Bilirubin 0.15 L ALT 13 L Alkaline Phosphatase 153 H Total Protein 6.2 L Albumin 2.4 L Urine Protein 30 H Urine Blood Moderate H Ur Leukocyte Esterase Small H Urine RBC 5-10 H Urine WBC 10-20 H
--- NOTE | 2024-07-20 15:14 | PGE_ITS ---
Date of service: 07/20/24 Time of Service: 15:14 Pelvic Exam Dilation: 10 Comments: Pt checked at 12:45 and was noted to no longer have an anterior lip and was +1 station. Repeat exam at 15:00 was initially done while in hands and knees a swollen lip of cervix was felt. However, when on her back the cervix was no longer palpable and baby was at +2 station. Fetus A Heart Rate Baseline: 150 Assessment Note: heartrate noted to be tracing continuously is maternal. spot checks are 150s. Assessment and Plan Assessment and plan (1) Preeclampsia: Status: Acute Assessment and plan: Po @40.1wks, PEC, laboring, pushed initially with an anterior lip but then rested a while and has been pushing fairly consistently for 2hrs and is making slow progress. status reassuring. Objective Abnormal lab results 07/19/24 07/19/24 Range/Units 19:04 19:13 Hct 34.9 L (36.0-46.0) % Chloride 108 H (98-107) mmol/L Total Bilirubin 0.15 L (0.2-1.0) mg/dL ALT 13 L (14-59) U/L Alkaline Phosphatase 153 H (46-116) U/L Total Protein 6.2 L (6.4-8.2) g/dL Albumin 2.4 L (3.4-5.0) g/dL Urine Protein 30 H (Neg-Trace) mg/dL Urine Blood Moderate H (Negative) Ur Leukocyte Esterase Small H (Negative) Urine RBC 5-10 H (0-2) HPF Urine WBC 10-20 H (0-5) HPF Temp Pulse Resp BP Pulse Ox 99.5 F 107 H 16 136/65 89 L 07/20/24 14:00 07/20/24 14:00 07/20/24 13:00 07/20/24 14:00 07/20/24 10:27 Laboratory Results WBC 10.17 10^3/uL (4.4-10.8) 07/19/24 19:13 RBC 4.04 10^6/uL (3.93-5.22) 07/19/24 19:13 Hgb 11.4 g/dL (11.2-15.7) 07/19/24 19:13 Hct 34.9 % (36.0-46.0) L 07/19/24 19:13 MCV 86 fL (80-95) 07/19/24 19:13 MCH 28.2 pg (27.0-33.0) 07/19/24 19:13 MCHC 32.7 % (32.0-36.0) 07/19/24 19:13 RDW 13.6 % (11.7-14.6) 07/19/24 19:13 Plt Count 315 10^3/uL (130-400) 07/19/24 19:13 MPV 9.0 fL (8.0-11.0) 07/19/24 19:13 Sodium 140 mmol/L (136-145) 07/19/24 19:13 Potassium 4.7 mmol/L (3.5-5.1) 07/19/24 19:13 Chloride 108 mmol/L (98-107) H 07/19/24 19:13 Carbon Dioxide 23.1 mmol/L (21.0-32.0) 07/19/24 19:13 Anion Gap 8.9 mmol/L (3-11) 07/19/24 19:13 BUN 18 mg/dL (7-18) 07/19/24 19:13 Creatinine 0.9 mg/dL (0.55-1.02) 07/19/24 19:13 Est GFR (CKD-EPI 2020) 82.88 (mL/min/1.73m2) 07/19/24 19:13 Glucose 97 mg/dL (74-106) 07/19/24 19:13 Calcium 9.0 mg/dL (8.5-10.1) 07/19/24 19:13 Total Bilirubin 0.15 mg/dL (0.2-1.0) L 07/19/24 19:13 AST 15 U/L (15-37) 07/19/24 19:13 ALT 13 U/L (14-59) L 07/19/24 19:13 Alkaline Phosphatase 153 U/L (46-116) H 07/19/24 19:13 Total Protein 6.2 g/dL (6.4-8.2) L 07/19/24 19:13 Albumin 2.4 g/dL (3.4-5.0) L 07/19/24 19:13 Urine Color Yellow (Yellow) 07/19/24 19:04 Urine Clarity Clear (Clear) 07/19/24 19:04 Urine pH 6.5 (5-8) 07/19/24 19:04 Ur Specific [place] 1.020 (1.005-1.025) 07/19/24 19:04 Urine Protein 30 mg/dL (Neg-Trace) H 07/19/24 19:04 Urine Ketones Negative mg/dL (Negative) 07/19/24 19:04 Urine Blood Moderate (Negative) H 07/19/24 19:04 Urine Nitrite Negative (Negative) 07/19/24 19:04 Urine Bilirubin Negative (Negative) 07/19/24 19:04 Urine Urobilinogen 0.2 mg/dL (Up to 0.2) 07/19/24 19:04 Ur Leukocyte Esterase Small (Negative) H 07/19/24 19:04 Urine RBC 5-10 HPF (0-2) H 07/19/24 19:04 Urine WBC 10-20 HPF (0-5) H 07/19/24 19:04 Ur Epithelial Cells Moderate HPF (Negative) 07/19/24 19:04 Urine Crystals Negative HPF (Negative) 07/19/24 19:04 Urine Bacteria Few HPF (Negative) 07/19/24 19:04 Urine Casts Negative LPF (Negative) 07/19/24 19:04 Urine Mucus Negative (Negative) 07/19/24 19:04 Ur Culture Indicated? No/Sq. Contamination 07/19/24 19:04 Ur Random Creatinine 72.26 mg/dL 07/19/24 19:04 U Random Total Protein 33.8 mg/dL 07/19/24 19:04 U [place] Prot/Creat Ratio 0.46 07/19/24 19:04 Urine Glucose Negative mg/dL (Negative) 07/19/24 19:04 Membranes Rupture Positive 07/19/24 22:42 ABO/Rh O Positive 07/19/24 19:13 Antibody Screen NEGATIVE 07/19/24 19:13 Vital Signs Reviewed: Yes Subjective Interval history since last seen: Pt has been pushing in various positions and feels increased pressure. Results Hemoglobin/Hematocrit: Hgb 11.4 g/dL (11.2-15.7) 07/19/24 19:13 Hct 34.9 % (36.0-46.0) L 07/19/24 19:13 Abnormal Lab Findings: Abnormal Labs 07/19/24 07/19/24 19:04 19:13 Hct 34.9 L Chloride 108 H Total Bilirubin 0.15 L ALT 13 L Alkaline Phosphatase 153 H Total Protein 6.2 L Albumin 2.4 L Urine Protein 30 H Urine Blood Moderate H Ur Leukocyte Esterase Small H Urine RBC 5-10 H Urine WBC 10-20 H
--- NOTE | 2024-07-20 17:09 | W.PM.OBNL1 ---
Date of service: 07/20/24 Time of Service: 17:09 Contractions Monitor Mode: External Contraction Frequency(min): every 3-5 Contraction Duration(sec): 60 Intensity: Moderate/Strong Fetus A Monitor: External (US) Heart Rate Baseline: 120 Presentation: Vertex Variability: Moderate (6-25 BPM) Categories: Category I Accelerations: 15 X 15 Decelerations: None Amniotic Membrane Status: Ruptured Assessment and Plan Assessment and plan (1) Prolonged labor antepartum: Status: Acute Assessment and plan: Dr. Freeman was notified of patient's status. She is present in the hospital. Will continue to assess labor progress and assist with pushing and examine when Deisi allows. Davian Cantu CRNA was notified of patient's status. (2) Preeclampsia: Status: Acute Assessment and plan: Will continue to assess blood pressure. Objective Abnormal lab results 07/19/24 07/19/24 Range/Units 19:04 19:13 Hct 34.9 L (36.0-46.0) % Chloride 108 H (98-107) mmol/L Total Bilirubin 0.15 L (0.2-1.0) mg/dL ALT 13 L (14-59) U/L Alkaline Phosphatase 153 H (46-116) U/L Total Protein 6.2 L (6.4-8.2) g/dL Albumin 2.4 L (3.4-5.0) g/dL Urine Protein 30 H (Neg-Trace) mg/dL Urine Blood Moderate H (Negative) Ur Leukocyte Esterase Small H (Negative) Urine RBC 5-10 H (0-2) HPF Urine WBC 10-20 H (0-5) HPF Temp Pulse Resp BP Pulse Ox 97.5 F L 144 H 16 125/73 89 L 07/20/24 16:25 07/20/24 16:25 07/20/24 15:00 07/20/24 16:25 07/20/24 10:27 Laboratory Results WBC 10.17 10^3/uL (4.4-10.8) 07/19/24 19:13 RBC 4.04 10^6/uL (3.93-5.22) 07/19/24 19:13 Hgb 11.4 g/dL (11.2-15.7) 07/19/24 19:13 Hct 34.9 % (36.0-46.0) L 07/19/24 19:13 MCV 86 fL (80-95) 07/19/24 19:13 MCH 28.2 pg (27.0-33.0) 07/19/24 19:13 MCHC 32.7 % (32.0-36.0) 07/19/24 19:13 RDW 13.6 % (11.7-14.6) 07/19/24 19:13 Plt Count 315 10^3/uL (130-400) 07/19/24 19:13 MPV 9.0 fL (8.0-11.0) 07/19/24 19:13 Sodium 140 mmol/L (136-145) 07/19/24 19:13 Potassium 4.7 mmol/L (3.5-5.1) 07/19/24 19:13 Chloride 108 mmol/L (98-107) H 07/19/24 19:13 Carbon Dioxide 23.1 mmol/L (21.0-32.0) 07/19/24 19:13 Anion Gap 8.9 mmol/L (3-11) 07/19/24 19:13 BUN 18 mg/dL (7-18) 07/19/24 19:13 Creatinine 0.9 mg/dL (0.55-1.02) 07/19/24 19:13 Est GFR (CKD-EPI 2020) 82.88 (mL/min/1.73m2) 07/19/24 19:13 Glucose 97 mg/dL (74-106) 07/19/24 19:13 Calcium 9.0 mg/dL (8.5-10.1) 07/19/24 19:13 Total Bilirubin 0.15 mg/dL (0.2-1.0) L 07/19/24 19:13 AST 15 U/L (15-37) 07/19/24 19:13 ALT 13 U/L (14-59) L 07/19/24 19:13 Alkaline Phosphatase 153 U/L (46-116) H 07/19/24 19:13 Total Protein 6.2 g/dL (6.4-8.2) L 07/19/24 19:13 Albumin 2.4 g/dL (3.4-5.0) L 07/19/24 19:13 Urine Color Yellow (Yellow) 07/19/24 19:04 Urine Clarity Clear (Clear) 07/19/24 19:04 Urine pH 6.5 (5-8) 07/19/24 19:04 Ur Specific [place] 1.020 (1.005-1.025) 07/19/24 19:04 Urine Protein 30 mg/dL (Neg-Trace) H 07/19/24 19:04 Urine Ketones Negative mg/dL (Negative) 07/19/24 19:04 Urine Blood Moderate (Negative) H 07/19/24 19:04 Urine Nitrite Negative (Negative) 07/19/24 19:04 Urine Bilirubin Negative (Negative) 07/19/24 19:04 Urine Urobilinogen 0.2 mg/dL (Up to 0.2) 07/19/24 19:04 Ur Leukocyte Esterase Small (Negative) H 07/19/24 19:04 Urine RBC 5-10 HPF (0-2) H 07/19/24 19:04 Urine WBC 10-20 HPF (0-5) H 07/19/24 19:04 Ur Epithelial Cells Moderate HPF (Negative) 07/19/24 19:04 Urine Crystals Negative HPF (Negative) 07/19/24 19:04 Urine Bacteria Few HPF (Negative) 07/19/24 19:04 Urine Casts Negative LPF (Negative) 07/19/24 19:04 Urine Mucus Negative (Negative) 07/19/24 19:04 Ur Culture Indicated? No/Sq. Contamination 07/19/24 19:04 Ur Random Creatinine 72.26 mg/dL 07/19/24 19:04 U Random Total Protein 33.8 mg/dL 07/19/24 19:04 U [place] Prot/Creat Ratio 0.46 07/19/24 19:04 Urine Glucose Negative mg/dL (Negative) 07/19/24 19:04 Membranes Rupture Positive 07/19/24 22:42 ABO/Rh O Positive 07/19/24 19:13 Antibody Screen NEGATIVE 07/19/24 19:13 Vital Signs Reviewed: Yes Objective Narrative Objective Narrative: 2+ pitting edma of feet. marked edema of labia. Subjective Patient Reports: No new Complaints Interval history since last seen: Deisi has been pushing off and on throughout the day. She has been fully dilated since 1500. I assumed her care at 1630. Her Kristine henry was offering her saltines and other solid food sand I advised her to avoid solid food at this time. She reports fatigue and nausea. pitocin augmentation was offered by Dr Gomez at 1630 and Deisi declined. She expressed that she does not wish to have a and wished to push on her hands and knees and she was assisted to do this. As there had been an anterior rim of cervix while she was on her hands and knees at 1500. I offered a cervical exam. She declined an exam and stated We are pushing and I'm not having a . Results Hemoglobin/Hematocrit: Hgb 11.4 g/dL (11.2-15.7) 07/19/24 19:13 Hct 34.9 % (36.0-46.0) L 07/19/24 19:13 Abnormal Lab Findings: Abnormal Labs 07/19/24 07/19/24 19:04 19:13 Hct 34.9 L Chloride 108 H Total Bilirubin 0.15 L ALT 13 L Alkaline Phosphatase 153 H Total Protein 6.2 L Albumin 2.4 L Urine Protein 30 H Urine Blood Moderate H Ur Leukocyte Esterase Small H Urine RBC 5-10 H Urine WBC 10-20 H
--- NOTE | 2024-07-20 19:05 | PLAC_PTH ---
PATIENT: Deisi Sanders LOC: OBS U#:[id number] AGE/SX: 38/F ROOM: OBS.300 RE07/19/[address]: Sary Gomez MD : [id number] BED: A DIS: 07/21/2024 SPEC #: [id number] RECD: 07/23/24 12:33 STATUS: ENRRIQUE REQ #: [id number] JEANMARIE: 07/20/24 19:[address]: Sary Gomez DEPT: Surgical Specimen RECD BY: Nunu Hodges ENTERED: 07/23/24 12:34 SP TYPE: PLAC OTHR DR: Kat Womack CNM Tissues: 1 - PLACENTA (3RD TRIMESTER) Procedures: IMMUNOPEROXIDASE STAIN GROSS AND MICRO LEVEL 5 Comments: [id number]
[2024-07-20] MEDS: Ibuprofen 600 MG TAB (19:15)
[2024-07-20] MEDS: Acetaminophen 325 MG TAB (19:15)
--- NOTE | 2024-07-20 21:34 | OBVDS_ITS ---
Date of service: 07/20/24 Time of Service: 21:35 OB Labor/ Delivery Information Baby A Delivery Delivery Method: Spontaneaous Presentation: Cephalic Vertex Position: Left Occipital Anterior Cord Description-Baby A: 3 Vessels, Nuchal Cord and Reduced (loose) Estimated Blood Loss: 1500 Delivery Outcome: Liveborn Infant Complications: Apgars, 5 and 7. Evaluation for sepsis postdelivery Note: I was notified at approximately 5 PM, patient was pushing with reasonable maternal effort, though somewhat resistant to things such as cervical examination and position changes. She had an extremely prolonged course of transition from being an anterior lip to completely dilated. She also had a long second stage being 6 hours and 14 minutes. I was present at the bedside after notification at 1800. At that point, patient allowed for cervical examination and the baby was found to be in the occiput anterior position with a moderate amount of caput and It being at a +1 station. Patient was strongly encouraged at maternal effort with pushing repositioned, and made good progress at that point. Throughout the course of my presence while pushing, heart tones remained in the 130s. With appropriate maternal effort, ultimately, the mother pushed the vertex over the perineum. There was a nuchal cord x 1 which was easily reduced. A shoulder dystocia was noticed. Patient and staff had been previously prepped for the anticipation of a shoulder dystocia considering her prolonged labor course. There was Deysi maneuver, and delivery of the posterior shoulder. Shoulder dystocia was resolved in less than 1 minute. At this point, baby was placed skin to skin with mom. There was delayed cord clamping. At the patient's request. Baby was stimulated on the mom's abdomen. After cord was clamped, and cut, the baby was transitioned to the warmer for further evaluation. Cord blood gases and cord blood sample were both obtained. Patient was somewhat reluctant to have Pitocin IV though after a large gush of blood, Pitocin was started by vein. Placenta delivered s pontaneously in the [place] mode and noted to be somewhat calcified though intact. With uterine massage, and Pitocin, uterine atony resolved. On inspection of the perineum and vagina there was noted to be a second-degree, somewhat stellate laceration which was repaired with 3-0 Vicryl suture in the usual fashion to achieve hemostasis. In light of the significantly long labor, and long second stage along with labial and perineal edema, a [place] catheter was inserted. There was immediate return of approximately 300 cc of somewhat dark yellow urine. This will remain in situ in light of her perineal swelling, and to ensure that bladder drainage to decrease her risk of uterine atony. Post delivery, estimated blood loss was approximately 1500 cc after removing of the conical drape, and notation of a significant amount of blood on the bed, and soaking into the bedding. Vital signs remained stable. She had been tachycardic prior to delivery, and less tachycardic postdelivery. Blood pres sure is stable in the 130s over 70s range. Opportunity at debriefing was had with the entire team, subsequently with the family, and her nurse director underwriter sales present. Anticipation is that baby in the postdelivery state will be transferred to a tertiary care center. Will work on transfer of the mom as well. Providers Doctor: Cristiane Freeman Nurse [employer] Mainframe Developer: Christina Hobbs Strategy Execution Consultant: David Reyes Nurse: Shayy Womack Nurse: Michelle Love Labor/Delivery Information Number of Babies in Womb: 1 Steroids Given: None Reason Steroids Not Administered: N/A Group Beta Strep: Declined Antibiotics Administered: No Rubella Status: Immune Blood Type: O+ Varicella Immunity: Not Tested Shoulder Dystocia: Yes Stages of Labor Onset of Labor Date: 07/19/24 Onset of Labor Time: 22:40 Complete Dilatation Date: 07/20/24 Complete Dilatation Time: 12:45 Labor - Stage 1 Duration: 14 hours and 5 minutes ROM Baby A: 07/19/24 ROM Baby A: 22:40 ROM Total Time- Baby A: [id number] Delivery Date-Baby A: 07/20/24 Infant Delivery Time-Baby A: 18:59 Labor Stage 2 Duration: 6 hours and 14 minutes Placenta Delivery Date-Baby A: 07/20/24 Placenta Delivery Time-Baby A: 19:05 Labor-Stage 3 Duration: 6 minutes Total Length of Labor-Baby A: 20 hours and 19 minutes Placenta Status: Delivered Baby A Infant Gender: Male Gestational Status: Term (39-41.6 wks) Gestational Age in Weeks/Days: 40 Weeks and 1 Days weight: 8 lb 10.274 oz Shoulder Dystocia Delivery Times Date of Delivery of Head: 12/13/24 Time of Delivery of the Head: 18:59 Head to Body Delivery Interval(minutes): 1 Verify No Fundal Pressure Applied Fundal Pressure: No Pressure Applied Arm Under Sympisis Arm Under Symphisis: Right Hemorrrhage Note Note Note: There is noted to be excessive blood loss at the time of delivery before delivery of the placenta. This was controlled with IV Pitocin, uterine massage, massage of the lower uterine segment, placement of the [place] catheter, and repair of her stellate perineal second-degree laceration.
--- NOTE | 2024-07-20 21:45 | W.PM.OBDISCH ---
Date of service: 07/20/24 Time of Service: 21:45 DS: Diagnosis Discharge Diagnosis (1) Prolonged labor antepartum: Status: Acute Asessment and Plan: Markedly long second stage of labor with prolonged rupture of membranes approximately 20 hours patient will be transferred to [facility] for ongoing care. Ventura catheter is in situ due to significant perineal edema. Baby is being transferred to the intensive care unit. Mom is anticipating breast-feeding. Group B strep was unknown. (2) Preeclampsia: Status: Acute Asessment and Plan: Blood pressure stable (3) hemorrhage: Status: Acute Asessment and Plan: Approximately 1500 cc blood loss at the time of delivery. Mildly tachycardic. Stable blood pressure. 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 She was transition from a home setting to a hospital setting due to preeclampsia based on elevated blood pressure and elevated protein creatinine ratio. She was admitted to the obstetric service on 07/19/2024 with the intention of labor induction. After cervical examination by who was in attendance, she progressed into spontaneous labor. At approximately 4 AM, she was noted to have an anterior cervical lip. For the next number of hours she had position change and intermittent attempts at pushing. As noted in the chart, at approximately 11:30 AM she was found to be nearly completely dilated and again continued to have intermittent pushing. Second stage huddles were held at a minimum of 6 times. She was transition from the care of Dr. Gomez to Christina Metcalf CNM to continue the labor process. Ultimately, with position changes, and good expulsive force starting at approximately 1800, she delivered a vertex over a second-degree perineal laceration at 1859. There was a shoulder dystocia that resolved in less than 1 minute with Deysi and delivery of the posterior arm. She did have a hemorrhage from which uterine atony and her perineal laceration were contributing factors. Uterine atony resolved with bladder drainage, uterine massage, IV Pitocin and repair of the perineal laceration. Patient remained stable in the period. Debriefing was had. Her was in the process of transfer to tertiary care center with suspected sepsis Home Meds and New Rx's Prescriptions: No Action No Known Home Meds OB:DS Summary Summary Vaginal Delivery Method: Spontaneaous Episiotomy Description: None Laceration Description: Perineal Laceration Extension: Second Degree Contraception Discussed Contraception Discussed: No, [place] Gender-Baby A: Male weight: 8 lb 10.274 oz Status at Discharge Functional status at discharge: wheelchair bound Overall status at discharge: patient is progressing back to baseline Mental Status: mental status grossly normal Speech and Movement: speech and movement normal Mood: congruent mood Affect: normal affect Quality:SDOH Health Related Social Needs: No Data to Display Exam Physical Exam Vital signs: Temp Pulse Resp BP Pulse Ox 99.8 F H 116 H 16 137/77 96 07/20/24 20:20 07/20/24 20:20 07/20/24 19:30 07/20/24 19:42 07/20/24 19:30 Vital Signs Reviewed: Yes Notable Details: Mild tachycardia, improving. Blood pressure stable. Narrative: Low-grade temperature at 99.8. Stable blood pressure. Constitutional Constitutional: no acute distress and obese HEENT Exam HEENT Exam: Normal Neck Exam Neck Exam: Normal Respiratory Exam Respiratory Exam: Normal Cardiovascular Exam Cardiovascular Exam: Normal Abdominal Exam Abdomen: Tender Fundal Exam Fundus: Below Umbilicus and Firm Exam Comments: Markedly edematous perineum. Stable repair of perineal laceration. Ventura catheter in situ Extremities Exam Extremity Exam: Edema (Bilateral lower extremity, 2+.); negative Calf Tenderness Back/Spine/Pelvis Exam Back Exam: Normal Skin Exam Skin Exam: Normal Neurological Exam Neurological Exam: Normal DetailedPsychiatric Exam Psych Exam: Anxious PFSH All Active Problems Shoulder dystocia, antepartum (Acute) hemorrhage (Acute) Prolonged labor antepartum (Acute) Preeclampsia (Acute) Family history of cardiac disorder in father (Acute) Pt's partner/FOB has arrhythmia and VSD Elderly primigravida (Acute) Migraines (Chronic) PTSD (post-traumatic stress disorder) (Acute) Anxiety (Chronic) (Acute) Medical History History of abnormal cervical Pap smear Pelvic floor dysfunction Increased urinary frequency during Social History Smoking/Tobacco Use Status: Never Second Hand Exposure: No Smoking risk assessment performed?: Yes Alcohol Intake: never Drug use: Never Substance use type: does not use Household members: spouse and family Housing: house current occupation: Sexually active: Yes Current gender identity: female What is your relationship status?: Panel score (0-1 are the most socially isolated patients): 1 What type of physical activity do you participate in: regular exercise Duration: 30-45 minutes/day Seatbelt use: always Helmet use: Yes Do you feel safe at home: Yes Do you feel safe in your relationship?: Yes History History 1 Para 0 Hx # Term Pregnancies 0 Multiple births 0 Hx # Pregnancies 0 Ectopic pregnancies 0 AB induced 0 Hx Number of Living Children 0 AB spontaneous 0 DS: Data Vitals/I&O Vitals and I&O: Vital Signs Temperature 99.8 F H 07/20/24 20:20 Temperature 97.9 F 07/19/24 21:53 Temperature Source Forehead 07/20/24 19:30 Pulse 116 H 07/20/24 20:20 Pulse 81 07/19/24 21:53 Pulse Rhythm Regular 07/20/24 07:20 Respiratory Rate 16 07/20/24 19:30 Respiratory Depth Normal 07/20/24 07:20 Blood Pressure 137/77 07/20/24 19:42 Blood Pressure 136/79 07/19/24 21:53 Blood Pressure Mean 102 07/20/24 19:30 Pulse Oximetry 96 07/20/24 19:30 Oxygen Delivery Method Room Air 07/19/24 22:04 Oxygen Flow Rate 0 07/19/24 22:04 Intake & Output 07/19/24 07/20/24 07/20/24 23:59 11:59 23:59 Output Total 100 / 275 175 / 275 Balance -100 / -275 -175 / -275 Weight 230 lb 230 lb Output: Urine 100 / 275 175 / 275 Other: Urine Color Yellow Yellow Yellow Urine Appearance Clear Data Completed and Pending Labs on day of discharge: Labs from last 24 hours 07/19/24 22:42 Membranes Rupture Positive
[2024-07-20] MEDS: diphenhydrAMINE 25 MG CAP PO (21:55)
--- NOTE | 2024-07-21 07:38 | W.ANESNEU ---
Epidural/Spinal Cath. Removal Date Performed: 07/20/24 Procedure Time: 21:30 Catheter Removal Type: Epidural Catheter Procedure Location: Obstetrics Patient Position: Sitting Catheter Removal Procedure: Dressing Removed, Catheter Removed without Resistance and Catheter Tip Intact (Removed by OB technical staff assistant. Reported that cath tip was intact.) Paresthesia: None Procedure Tolerated: No Complications and Patient tolerated well Procedure Outcome: Successful Procedure Comment:: Performed by OB technical staff assistant. Performed By: Nick Cantu
== END 2024-07-21 01:11 | disposition short-term general hospital (02) | DRG 806 ==
LOC: BCD 21:12 → OBS 21:12
PROVIDERS: Admitting Provider Obstetrics & Gynecology; PCP Advanced Practice Midwife; Visit Provider Obstetrics & Gynecology
DX: O14.94 Unspecified pre-eclampsia, complicating childbirth (principal); O99.354 Diseases of the nervous system complicating childbirth; Z37.0 Single live birth; Z3A.40 40 weeks gestation of pregnancy; G43.909 Migraine, unspecified, not intractable, without status migrainosus; F43.10 Post-traumatic stress disorder, unspecified; F41.9 Anxiety disorder, unspecified; O99.344 Other mental disorders complicating childbirth; O63.1 Prolonged second stage (of labor); O69.81X0 Labor and delivery complicated by cord around neck, without compression, not applicable or unspecified; O66.0 Obstructed labor due to shoulder dystocia; O72.1 Other immediate postpartum hemorrhage; O70.1 Second degree perineal laceration during delivery
CPT/HCPCS: 59025; 80053; 84112; 85027; 86850; 86900; 86901; 81003; 81015; 82565; 84156; 88307; 88361; J2003